=== PATIENT | female | born 1975 | race Caucasian/White ===

== ENCOUNTER 2019-07-20 19:43 | Emergency (ER) | payer BC ==
[2019-07-20 20:28] LABS: Urine Appearance Cloudy; Urine Bilirubin Negative (Negative); Urine Blood 1+ (Negative); Urine Color Yellow; Urine Glucose Negative (Negative); Urine Ketones Trace (Negative); Urine Nitrite Negative (Negative); Urine Protein Negative (Negative); Urine Specific Gravity 1.013 (1.010-1.030); Urine Urobilinogen Negative (Negative)
[2019-07-20 20:33] LABS: Urine Bacteria Absent (Absent); Urine Red Blood Cell 2+(6-10/hpf) (Absent); Urine Squamous Epithelial Cell Present (Absent); Urine White Blood Cell 3+(>20/hpf) (Absent)
[2019-07-20] MEDS ORDERED: oxyCODONE/Acetamin 5/325 MG* TAB PO ONE (23:39)
--- NOTE | 2019-07-20 23:40 | ED ---
Abdominal Pain/Female - HPI Summary HPI Summary: Patient is a 43 y/o F presenting to the ED for a chief complaint of right flank pain. Patient was seen by her PCP on 07/19/19 and prescribed antibiotics for a diagnosis of acute pyelonephritis. She currently reports right flank pain that radiates to the back, constant nausea, and vomiting on 07/19/19 that has since resolved. She also admits a fever of 102.9 F on 07/19/19. She denies any aggravating or alleviating factors. She previously took Tylenol for the pain. LNMP was 2 weeks ago. Patient takes Prozac daily. - History of Current Complaint Chief Complaint: EDFlankPain Stated Complaint: FLANK PAIN PER PT Time Seen by Provider: 07/20/19 23:29 Hx Obtained From: Patient Onset/Duration: Sudden Onset, Still Present Timing: Constant Severity Initially: Severe Severity Currently: Severe Pain Intensity: 7 Pain Scale Used: 0-10 Numeric Location: Flank - Right Radiates: Yes Radiates to: Back Aggravating Factor(s): Nothing Alleviating Factor(s): Nothing Associated Signs and Symptoms: Positive: Fever - In vitals, 97.5 F, Back Pain - Radiates from right flank, Nausea, Vomiting - Resolved Allergies/Adverse Reactions: Allergies Allergy/AdvReac Type Severity Reaction Status Date / Time No Known Allergies Allergy Verified 07/20/19 19:53 Home Medications: Home Medications Fluoxetine HCl 20 mg PO DAILY 07/20/19 [History Confirmed 07/20/19] levoFLOXacin [Levofloxacin] 750 mg PO BID 07/20/19 [History Confirmed 07/20/19] PMH/Surg Hx/FS Hx/Imm Hx Previously Healthy: Yes Endocrine/Hematology History: Denies: Hx Diabetes Cardiovascular History: Denies: Hx Hypercholesterolemia, Hx Hypertension Sensory History: Denies: Hx Legally Blind, Hx Deafness Opthamlomology History: Denies: Hx Legally Blind EENT History: Denies: Hx Deafness - Surgical History Surgical History: None Surgery Procedure, Year, and Place: None Infectious Disease History: No Infectious Disease History: Denies: Traveled Outside the [place] in Last 30 Days - Family History Known Family History: Negative: Diabetes - Social History Lives: With Family Alcohol Use: Weekly Hx Substance Use: Yes Substance Use Type: Reports: Marijuana Hx Tobacco Use: No Smoking Status (MU): Never Smoked Tobacco Review of Systems Positive: Fever - In vitals, 97.5 F Positive: Abdominal Pain - Right flank, Vomiting - Resolved, Nausea Positive: flank pain - Right Positive: Myalgia - Back that radiates from the right flank All Other Systems Reviewed And Are Negative: Yes Physical Exam - Summary Physical Exam Summary: Appearance: Well-appearing, Well-nourished, lying in bed comfortably. Does not appear toxic. Skin: Warm, dry, no obvious rash Eyes: sclera anicteric, no conjunctival pallor ENT: mucous membranes moist, pharynx appears normal Neck: Supple, nontender Respiratory: Clear to auscultation, no signs of respiratory distress Cardiovascular: Normal S1, S2. No murmurs. Normal distal pulses in tibial and radial bilaterally. Abdomen: Soft, normal active bowel sounds present. Mild epigastric tenderness without rebound or guarding. Musculoskeletal: Normal, Strength/ROM Intact. No CVA tenderness. Neurological: A&Ox3, awake and alert, mentation is normal, speech is fluent and appropriate Psychiatric: affect is normal, does not appear anxious or depressed Triage Information Reviewed: Yes Vital Signs On Initial Exam: Initial Vitals Temp Pulse Resp BP Pulse Ox 97.5 F 120 18 124/90 99 07/20/19 19:49 07/20/19 19:49 07/20/19 19:49 07/20/19 19:49 07/20/19 19:49 Vital Signs Reviewed: Yes Procedures - Sedation Patient Received Moderate/Deep Sedation with Procedure: No Diagnostics - Vital Signs Vital Signs Temp Pulse Resp BP Pulse Ox 07/20/19 21:47 97.0 F 110 18 119/89 98 07/20/19 19:49 97.5 F 120 18 124/90 99 - Laboratory Lab Results: Lab Results 07/20/19 Range/Units 20:12 Urine Color Yellow Urine Appearance Cloudy Urine pH 6.0 (5-9) Ur Specific [place] 1.013 (1.010-1.030) Urine Protein Negative (Negative) Urine Ketones Trace A (Negative) Urine Blood 1+ A (Negative) Urine Nitrate Negative (Negative) Urine Bilirubin Negative (Negative) Urine Urobilinogen Negative (Negative) Ur Leukocyte Esterase 3+ A (Negative) Urine WBC (Auto) 3+(>20/hpf) A (Absent) Urine RBC (Auto) 2+(6-10/hpf) A (Absent) Ur Squamous Epith Cells Present A (Absent) Urine Bacteria Absent (Absent) Urine Glucose Negative (Negative) Result Diagrams: 07/20/19 23:48 07/20/19 23:48 Lab Statement: Any lab studies that have been ordered have been reviewed, and results considered in the medical decision making process. Abdominal Pain Fem Course/Dx - Course Course Of Treatment: Patient is a 43 y/o F presenting to the ED for a chief complaint of right flank pain. Patient was seen by her PCP on 07/19/19 and prescribed antibiotics for a diagnosis of acute pyelonephritis. She currently reports right flank pain that radiates to the back, constant nausea, and vomiting on 07/19/19 that has since resolved. She also admits a fever of 102.9 F on 07/19/19. She denies any aggravating or alleviating factors. She previously took Tylenol for the pain. LNMP was 2 weeks ago. On exam, no CVA tenderness, mild epigastric tenderness without rebound or guarding. In the ED course, patient was given oxycodone 2 tab PO. Laboratory abnormal findings: WBC 11.8, absolute neuts 10.0, absolute lymphs 0.8, absolute monos 0.9, potassium 3.4, BUN 5, BUN/creatinine ratio 6.5, glucose 110, calcium 8.1, c- reactive protein 257.55, , urine ketones trace, urine blood 1+, urine leukocyte esterase 3+, urine WC 3+, urine RBC 2+, urine squamous epith cells present. Patient will be discharged with a diagnosis of kidney infection. Follow up with PCP as needed. - Diagnoses Provider Diagnoses: Kidney infection Discharge ED - Sign-Out/Discharge Documenting (check all that apply): Patient Departure - Discharge - Discharge Plan Condition: Good Disposition: HOME Prescriptions: Ondansetron ODT TAB* [Zofran 4 MG Odt TAB*] 8 mg PO Q6H PRN #12 tab.odt PRN Reason: Nausea oxyCODONE/Acetamin 5/325 MG* [Percocet 5/325 TAB*] 2 tab PO Q4H PRN #18 tab MDD 6 PRN Reason: Pain - Severe Patient Education Materials: Kidney Infection (ED) Referrals: Javad Wise MD [Primary Care Provider] - Additional Instructions: I tell people that in general it takes about 3 days of antibiotics to start feeling like you are turning the corner in this type of infection. Controlling pain and nausea are the mainstays of treatment in the meantime, along with antibiotics, so I have prescribed some medication for that. If you are feeling significantly worse or don't feel like you're starting to improve by the end of the week, we would want you re-evaluated. - Billing Disposition and Condition Condition: GOOD Disposition: Home - Attestation Statements Document Initiated by Casey: Yes Documenting Scribe: Debra Perdomo Provider For Whom Casey is Documenting (Include Credential): Chung Amador MD Scribe Attestation: I, Debra Perdomo, scribed for Chung Amador MD on 07/21/19 at 0627. Scribe Documentation Reviewed: Yes Provider Attestation: The documentation as recorded by the Debra de la vega accurately reflects the service I personally performed and the decisions made by me, Chung Amador MD Status of Scribe Document: Viewed
[2019-07-21 00:06] LABS: ABS Lymphocytes 0.8 10^3/ul (1.0-4.8); ABS Monocytes 0.9 10^3/ul (0-0.8); Eosinophil % 0.1 %; Hematocrit 36 % (35-47); Hemoglobin 12.7 g/dL (12.0-16.0); Lymphocyte % 7.2 %; Mean Corpuscular HGB Conc 35 g/dL (31-36); Mean Corpuscular Hemoglobin 31 pg (27-31); Mean Corpuscular Volume 86 fL (80-97); Mean Platelet Volume 8.2 fL (7.4-10.4); Platelet Count 166 10^3/uL (150-450); Red Blood Count 4.17 10^6 /uL (3.70-4.87); Red Cell Distribution Width 12 % (10-15); White Blood Count 11.8 10^3/uL (3.5-10.8)
[2019-07-21 00:20] LABS: ALT 20 U/L (7-52); AST 17 U/L (13-39); Albumin 3.6 g/dL (3.2-5.2); Albumin/Globulin Ratio 1.2 (1-3); Alkaline Phosphatase 68 U/L (34-104); Anion Gap 8 mmol/L (2-11); BUN/Creatinine Ratio 6.5 (8-20); Blood Urea Nitrogen 5 mg/dL (6-24); C Reactive Protein 257.55 mg/L (<8.01); CO2 Carbon Dioxide 24 mmol/L (22-32); Calcium 8.1 mg/dL (8.6-10.3); Chloride 103 mmol/L (101-111); EGFR Non-African American 81.8 (>60); Globulin 2.9 g/dL (2-4); Glucose 110 mg/dL (70-100); Potassium 3.4 mmol/L (3.5-5.0); Sodium 135 mmol/L (135-145); Total Protein 6.5 g/dL (6.4-8.9)
[2019-07-21 00:26] LABS: HCG Pregnancy < 0.60 mIU/mL
[2019-07-21 01:26] VITALS: BP 138/83
== END 2019-07-21 01:26 | disposition home or self-care (01) ==
LOC: ED 19:43
DX: N10 Acute pyelonephritis (principal); R10.84 Generalized abdominal pain; R50.9 Fever, unspecified; Z79.899 Other long term (current) drug therapy
CPT/HCPCS: 36415; 80053; 81003; 81015; 83605; 84702; 85025; 86140; 87040; 87086; 99283; A9270-GY